=== PATIENT | female | born 1960 | race Caucasian/White ===

== ENCOUNTER → 2016-11-27 | Outpatient (REF) | payer BC ==
[~2016-11-27] MED LIST: HUMALOG INSULIN; HUMUINJ IJ; HUMUINJ SC; INSULANT SC; Mag-Ox; Mag-Ox PO; No Historical Meds; mycostatin powder TOP
[2016-11-27 12:11] LABS: ALBUMIN 3.1 GM/DL (3.2-5.2); ALBUMIN/GLOBULIN RATIO 0.78 (1.00-1.93); ALKALINE PHOSPHATASE 126 U/L (45-117); ALT/SGPT 24 U/L (12-78); ANION GAP 9 MEQ/L (8-16); AST/SGOT 7 U/L (15-37); BILIRUBIN,TOTAL 0.3 MG/DL (0.2-1.0); BLOOD UREA NITROGEN 15 MG/DL (7-18); CALCIUM LEVEL 8.2 MG/DL (8.5-10.1); CARBON DIOXIDE LEVEL 23 MEQ/L (21-32); CHLORIDE LEVEL 110 MEQ/L (98-107); CHOLESTEROL LEVEL 133 MG/DL (<200); GLOMERULAR FILTRATION RATE > 60.0 (>51); GLUCOSE, FASTING 266 MG/DL (70-105); POTASSIUM SERUM 3.8 MEQ/L (3.5-5.1); SODIUM LEVEL 142 MEQ/L (136-145); TOTAL PROTEIN 7.1 GM/DL (6.4-8.2); TRIGLYCERIDES LEVEL 101 MG/DL (<150)
[2016-11-27 12:20] LABS: MEAN CORPUSCULAR HEMOGLOBIN 29.1 pg (27.0-33.0); MEAN CORPUSCULAR HGB CONC 31.8 g/dl (32.0-36.5); MEAN CORPUSCULAR VOLUME 91.7 fl (80.0-96.0); RED CELL DISTRIBUTION WIDTH 13.6 % (11.5-14.5); WHITE BLOOD COUNT 8.6 K/mm3 (4.0-10.0)
== END ==
LOC: M LABDRAW1 11:36
PROVIDERS: ATTEND Family Medicine
DX: E11.9 Type 2 diabetes mellitus without complications (principal); E78.5 Hyperlipidemia, unspecified

== ENCOUNTER → 2017-03-22 | Outpatient (REF) | payer BC ==
[2017-03-22 10:46] LABS: MEAN CORPUSCULAR HEMOGLOBIN 30.1 pg (27.0-33.0); MEAN CORPUSCULAR HGB CONC 33.4 g/dl (32.0-36.5); RED CELL DISTRIBUTION WIDTH 14.2 % (11.5-14.5); WHITE BLOOD COUNT 8.4 K/mm3 (4.0-10.0)
[2017-03-22 11:28] LABS: ALBUMIN 3.2 GM/DL (3.2-5.2); ALBUMIN/GLOBULIN RATIO 0.76 (1.00-1.93); ALKALINE PHOSPHATASE 126 U/L (45-117); ALT/SGPT 28 U/L (12-78); ANION GAP 8 MEQ/L (8-16); AST/SGOT 8 U/L (15-37); BILIRUBIN,TOTAL 0.4 MG/DL (0.2-1.0); BLOOD UREA NITROGEN 18 MG/DL (7-18); CARBON DIOXIDE LEVEL 23 MEQ/L (21-32); CHLORIDE LEVEL 110 MEQ/L (98-107); CREATININE FOR GFR 0.84 MG/DL (0.55-1.02); GLOMERULAR FILTRATION RATE > 60.0 (>51); GLUCOSE, FASTING 217 MG/DL (70-105); SODIUM LEVEL 141 MEQ/L (136-145); TOTAL PROTEIN 7.4 GM/DL (6.4-8.2)
== END ==
LOC: M LABDRAW1 07:44
PROVIDERS: ATTEND Family Medicine
DX: E11.9 Type 2 diabetes mellitus without complications (principal)

== ENCOUNTER → 2017-06-23 | Outpatient (CLI) | payer BC | LOC: M LAB 08:18 | PROVIDERS: ATTEND Family Medicine | DX: E11.9 Type 2 diabetes mellitus without complications (principal) ==

== ENCOUNTER 2017-09-15 09:48 | Inpatient (IN) | payer BC ==
[~2017-09-15] VITALS: Ht 157.5 cm; Wt 84.9 kg
[2017-09-15] MEDS ORDERED: INSUH10VL SC (10:03)
[2017-09-15] MEDS ORDERED: TRAM50TA2 PO (10:03)
[2017-09-15] MEDS ORDERED: AUGM875T28 PO (10:03)
[2017-09-15] MEDS ORDERED: TOPA100T12 PO (10:03)
[2017-09-15] MEDS ORDERED: CLINDAMYCIN 900 MG in APPROPRIATE DILUENT 1 EA IV ONE (10:30)
[2017-09-15 10:52] LABS: BASO # 0.1 10^3/uL (0.0-0.2); BASO % 0.4 % (0.0-1.0); IMMATURE GRANULOCYTE % 0.5 % (0-0); LYMPH # 2.7 10^3/uL (1.5-4.5); LYMPH % 15.5 % (24.0-44.0); MEAN CORPUSCULAR HEMOGLOBIN 28.7 pg (27.0-33.0); MEAN CORPUSCULAR HGB CONC 32.7 g/dl (32.0-36.5); MEAN CORPUSCULAR VOLUME 87.7 fl (80.0-96.0); MONO # 1.1 10^3/uL (0.0-0.8); MONO % 6.3 % (0.0-5.0); NEUTROPHILS # 13.3 10^3/uL (1.8-7.7); NEUTROPHILS % 77.3 % (36.0-66.0); PLATELET COUNT, AUTOMATED 363 10^3/uL (150-450); RED CELL DISTRIBUTION WIDTH 13.7 % (11.5-14.5); WHITE BLOOD COUNT 17.2 10^3/uL (4.0-10.0)
[2017-09-15 11:14] LABS: CALCIUM LEVEL 9.4 MG/DL (8.5-10.1); CREATININE FOR GFR 1.09 MG/DL (0.55-1.02); GLOMERULAR FILTRATION RATE 55.1 (>51); POTASSIUM SERUM 3.9 MEQ/L (3.5-5.1)
[2017-09-15] MEDS ORDERED: ISOVUE-370 76% 100ML VIAL (Q9967) As Ordered ONE (11:15)
[2017-09-15] MEDS ORDERED: NS 1,000 ML IV ONE (11:30)
--- NOTE | 2017-09-15 11:45 | REP ---
Clinical: Facial swelling. Technique: Axial contrast enhanced images from the skull base to the thoracic inlet with coronal and sagittal re-formations using 100 ml Isovue 370 intravenous contrast material. Findings: Left facial and perimandibular soft tissue swelling and inflammatory infiltration to the subcutaneous tissues is appreciated with early phlegmonous changes superficial to the mandible. No drainable fluid collection/abscess identified. Associated left-sided adenopathy is appreciated along with mild left tonsillar swelling. The parapharyngeal fat space and neurovascular bundle appears relatively normal and symmetric. The airway is patent and without compromise. The parotid, submandibular and sublingual glands are symmetric and normal. The osseous structures are normal. The sinuses are clear. Impression: Infectious/inflammatory process along the left side of the face and mandible with early phlegmonous changes. No drainable collection or abscess. Signed by Narciso Bateman MD 09/15/2017 11:36 A
[2017-09-15] MEDS ORDERED: DEXTROSE 50% 50 ML SYRINGE IV PRN (13:00)
[2017-09-15] MEDS ORDERED: GLUCOSE 4 GM CHEW TABLET PO PRN (13:00)
[2017-09-15] MEDS ORDERED: CLINDAMYCIN 300 MG in APPROPRIATE DILUENT 1 EA IV SCH ×2 (13:00→17:00)
[2017-09-15] MEDS ORDERED: GLUCAGON FOR INJ 1 MG VIAL (J1610) SC PRN (13:00)
[2017-09-15] MEDS ORDERED: MORPHINE 2 MG/ML 1ML SYRINGE IV PRN (13:15)
[2017-09-15] MEDS ORDERED: ONDANSETRON 4MG/2ML VIAL (J2405) IV PRN (13:15)
[2017-09-15] MEDS ORDERED: BISACODYL 5 MG TAB PO PRN (13:15)
[2017-09-15] MEDS ORDERED: LR 1,000 ML IV SCH (13:15)
--- NOTE | 2017-09-15 13:34 | HPE ---
DATE OF ADMISSION: 09/15/2017 PRIMARY CARE PROVIDER: Dr. Isbell in [place]. SECURITY FLEX OFFICER: Dr. Jaime Peralta. CHIEF COMPLAINT: Left sided neck swelling, mild dysphagia. HISTORY OF PRESENT ILLNESS: This is a 57-year-old female patient with underlying medical history of diabetes, insulin dependent, type 2 diabetes, and no other medical history. Recently treated for sinusitis with Augmentin since Saturday. Awoke this morning with severe left sided neck swelling and mild difficulty swallowing. Denies any shortness of breath. Denies any cough or reported chills. No documented fever. Denies any chest pain, pressure or discomfort. Able to tolerate liquids and solids at this time. Reporting nasal congestion, which has improved since Saturday. Denies sick contacts, injuries, dental pain. Denies any chest pain, pressure or discomfort. ALLERGIES: No known drug allergies. PAST MEDICAL HISTORY: Insulin dependent type 2 diabetes. PAST SURGICAL HISTORY: None. SOCIAL HISTORY: Patient works as a registered nurse at [employer]. No smoking. Occasional drinking of alcohol, holidays only. No illicit drug use. FAMILY HISTORY: Father with colon cancer, prostate cancer and lung cancer. Mother and sister with diabetes. REVIEW OF SYSTEMS: Reported left sided neck pain and swelling, and left submandibular pain, chills, no fever documents. All other review of systems were negative. HOME MEDICATIONS: - Augmentin 875 mg by mouth daily - NovoLog insulin before meals subcu - Lantus 35 units subcu twice a day - Topamax 100 mg by mouth three times a day - tramadol 50 mg by mouth daily as needed PHYSICAL EXAMINATION: VITAL SIGNS: Temperature 97.1, pulse 118, respirations 20, blood pressure 136/82, pulse oximetry 97% on room air. GENERAL: Patient alert and oriented times three in no acute distress. HEENT: Left sided neck erythema and swelling. No oral lesions noticed. Patient has dentures . Tympanic membranes bilaterally clear. NECK: Supple. Trachea midline. Left sided neck swelling noted with mild erythema, predominantly submandibular area. No lymphadenopathy. PULMONARY: Bilaterally clear to auscultation. CARDIAC: Regular. Mild tachycardia. S1 and S2. ABDOMEN: Soft, nontender. Positive bowel sounds. EXTREMITIES: No clubbing, cyanosis, or edema. NEUROLOGIC: No focal deficits. LABORATORIES: WBC 17.2, hemoglobin and hematocrit 14.9/45.6, platelets 363. Chemistries: Sodium 139, potassium 3.9, chloride 107, bicarb 23, BUN 9, creatinine 1.09, lactic acid 2.1. CT scan shows left side of the face and mandible with early phlegmon changes. No drainage fluid collection yet. ASSESSMENT/PLAN: This is a 57-year-old female patient with underlying medical history of insulin dependent type 2 diabetes, recently treated for sinusitis who presented with left mandibular cellulitis 1. left submandibular cellulitis with symptoms of mild difficulty swallowing. No respiratory difficulties. Failure of outpatient antibiotic treatment. Patient was already on Augmentin when this occurred. ENT Dr. Peralta has been consulted. Followup hemoglobin A1c, followup C-reactive protein, followup blood. Patient currently on vanco 3. Diabetes with diabetic ketoacidosis. Basal bolus insulin as well as consistent carbohydrate diet. Followup hemoglobin A1c, followup fingerstick. Adjust as needed. Followup electrolytes. 4. Gastrointestinal (GI) prophylaxis. Given the patient is on clindamycin, will place the patient on probiotics. 5. Deep vein thrombosis (DVT) prophylaxis. Lovenox subcu. DISPOSITION PLANNING: Pending ENT consultation, clinical improvement. MTDD
[2017-09-15] MEDS: PERCOCET 5MG/325MG TAB PO PRN (14:30)
[2017-09-15] MEDS: ENOXAPARIN 40 MG/0.4 ML SYRINGE (J1650) SC SCH (14:31)
[2017-09-15 15:30] VITALS: BP 112/77
[2017-09-15 17:00] VITALS: O2SAT 97
[2017-09-15] MEDS: TOPIRAMATE (TopAMAX) 100 MG TAB PO SCH ×2 (17:58→20:41)
[2017-09-15] MEDS: LACTOBACILLUS ACIDOPHILUS CAP (BACID) PO SCH (17:58)
[2017-09-15] MEDS: VANCOMYCIN HCL 1,000 MG, VIAL MATE ADAPTER 1 EACH in D5W 250 ML IV SCH (18:21)
[2017-09-15] MEDS: HumaLOG INSULIN (NovoLOG) PER UNIT SC SCH ×2 (18:21→20:28)
[2017-09-15 20:00] VITALS: BP 133/80
[2017-09-15] MEDS: LEVEMIR (INSULIN DETEMIR) 1 UNITS/0.01ML SC SCH (20:40)
[2017-09-15] MEDS: traMADol 50 MG TAB PO SCH (20:41)
[2017-09-16] VITALS: BP 134/68
[2017-09-16 00:51] VITALS: O2SAT 94
[2017-09-16] MEDS: PERCOCET 5MG/325MG TAB PO PRN ×3 (03:28→21:33)
[2017-09-16] MEDS: VANCOMYCIN HCL 1,000 MG, VIAL MATE ADAPTER 1 EACH in D5W 250 ML IV SCH ×2 (05:55→17:15)
[2017-09-16 06:58] LABS: MEAN CORPUSCULAR HEMOGLOBIN 28.8 pg (27.0-33.0); MEAN CORPUSCULAR HGB CONC 32.9 g/dl (32.0-36.5); MEAN CORPUSCULAR VOLUME 87.6 fl (80.0-96.0); PLATELET COUNT, AUTOMATED 275 10^3/uL (150-450); RED CELL DISTRIBUTION WIDTH 13.9 % (11.5-14.5); WHITE BLOOD COUNT 10.1 10^3/uL (4.0-10.0)
[2017-09-16 07:19] LABS: ANION GAP 8 MEQ/L (8-16); BLOOD UREA NITROGEN 11 MG/DL (7-18); CALCIUM LEVEL 8.4 MG/DL (8.5-10.1); CARBON DIOXIDE LEVEL 24 MEQ/L (21-32); CHLORIDE LEVEL 109 MEQ/L (98-107); CREATININE FOR GFR 0.84 MG/DL (0.55-1.02); GLOMERULAR FILTRATION RATE > 60.0 (>51); GLUCOSE, FASTING 230 MG/DL (70-105); MAGNESIUM LEVEL 1.9 MG/DL (1.8-2.4); POTASSIUM SERUM 3.6 MEQ/L (3.5-5.1); SODIUM LEVEL 141 MEQ/L (136-145)
[2017-09-16 08:00] VITALS: BP 115/66; O2SAT 96
--- NOTE | 2017-09-16 08:04 | CR ---
DATE OF CONSULTATION: The patient was seen in the hospital at the request of the hospitalist. The patient represents with a history of swelling beneath the mandible on the left side. This happened a week ago but became worse the day prior to admission. As well, she had a lesion on her skin which was inferior lateral to the lower lip on that left side. The patient is diabetic. The patient has had no previous surgery. The patient has no dental problems. She has no difficulty with swallowing or problems with her airway. Examination today shows she is alert and in no distress. She has got a lesion on her skin inferolateral to the lower lip on the left side, which measures 2-3 mm. Whitish in coloration, flat, surrounded by an area of erythema. There is edema and induration of the soft tissues from that area down over the mandible on that left side to the submandibular area anteriorly on that left side. Examination of the mouth shows no abnormalities but when I palpate, there is some fullness between the gingival alveolar sulcus on the left side. There is tenderness in that area. The rest of the examination is normal. IMPRESSION: The patient has an area of cellulitis and a skin lesion which is suspicious for methicillin resistant Staphylococcus aureus (MRSA). PLAN: I would suggest that her antibiotic be changed to vancomycin to cover MRSA. At the present time, she is not a surgical candidate.
[2017-09-16] MEDS: TOPIRAMATE (TopAMAX) 100 MG TAB PO SCH ×3 (08:25→21:19)
[2017-09-16] MEDS: LACTOBACILLUS ACIDOPHILUS CAP (BACID) PO SCH ×2 (08:25→17:15)
[2017-09-16] MEDS: traMADol 50 MG TAB PO SCH ×2 (08:27→21:19)
[2017-09-16] MEDS: HumaLOG INSULIN (NovoLOG) PER UNIT SC SCH ×4 (08:28→21:18)
[2017-09-16] MEDS: LEVEMIR (INSULIN DETEMIR) 1 UNITS/0.01ML SC SCH ×2 (08:28→21:17)
[2017-09-16] MEDS: ENOXAPARIN 40 MG/0.4 ML SYRINGE (J1650) SC SCH (08:29)
[2017-09-16 16:00] VITALS: BP 129/67
--- NOTE | 2017-09-16 18:42 | IPN ---
DATE: 09/16/2017 SUBJECTIVE: Patient and seen and examined in the room today. Today patient was upset regarding her treatment. She previously stated she was questioning why she needed to stay in the hospital for IV antibiotics and she was asking if there was any other alternative treatments that she could use at home. Patient continues to have left mandibular swelling with erythema. Patient is not if there is any improvements yet. OBJECTIVE: VITAL SIGNS: Temperature 97.8, pulse 100, respirations 16, blood pressure 115/66, pulse ox 96% on room air. GENERAL: No signs of acute distress. Alert and oriented times three. HEENT: There is the swelling and erythema located left mandibular region, very tender to palpation. There is a small skin opening right in the middle of the swelling. There is no obvious lesion inside the oral mucosa. No sinus tenderness or problems with palpations. CARDIOVASCULAR: Normal S1, S2, regular rate. LUNGS: Clear to auscultation bilaterally. ABDOMEN: Soft, nontender, nondistended, bowel sounds present. EXTREMITIES: No edema, no signs of cyanosis. LABORATORY DATA: WBC 10.1, hemoglobin 11.8, hematocrit 35.9, platelet count 278, sodium 141, potassium 3.6, chloride 109, carbon dioxide 24, BUN 11, creatinine 0.8, GFR greater than 60, fasting glucose 230, calcium 8.4, magnesium 1.9, c-reactive protein 5.98. Blood culture is negative after 24 hours. ASSESSMENT AND PLAN: 1. Left submandibular cellulitis. ENT Dr. Peralta has consulted. There is a suspicion for possible MRSA infection. Therefore the patient was placed on IV vancomycin. Patient does require pain medication to achieve better pain control. Patient currently on Bacid. 2. Diabetes. Patient is on Levemir 30 units subcu twice a day and covered with sliding scale. Patient is on consistent carbohydrate diet. 3. History of sinusitis. Patient was prescribed Augmentin previously and she only took it for 2-3 days and then her symptoms before worse and result in facial infections. Per the patient the sinusitis is improving. 4. Deep vein thrombosis (DVT) prophylaxis. Lovenox subcu.
[2017-09-16 20:00] VITALS: BP 137/80
[2017-09-17] VITALS: BP 134/73
[2017-09-17 05:36] LABS: MEAN CORPUSCULAR HEMOGLOBIN 28.8 pg (27.0-33.0); MEAN CORPUSCULAR HGB CONC 32.6 g/dl (32.0-36.5); MEAN CORPUSCULAR VOLUME 88.3 fl (80.0-96.0); PLATELET COUNT, AUTOMATED 278 10^3/uL (150-450); RED CELL DISTRIBUTION WIDTH 13.8 % (11.5-14.5); WHITE BLOOD COUNT 9.4 10^3/uL (4.0-10.0)
[2017-09-17 05:51] LABS: ANION GAP 8 MEQ/L (8-16); BLOOD UREA NITROGEN 14 MG/DL (7-18); CALCIUM LEVEL 8.8 MG/DL (8.5-10.1); CARBON DIOXIDE LEVEL 24 MEQ/L (21-32); CHLORIDE LEVEL 109 MEQ/L (98-107); CREATININE FOR GFR 0.72 MG/DL (0.55-1.02); GLOMERULAR FILTRATION RATE > 60.0 (>51); GLUCOSE, FASTING 196 MG/DL (70-105); POTASSIUM SERUM 3.9 MEQ/L (3.5-5.1); SODIUM LEVEL 141 MEQ/L (136-145)
--- NOTE | 2017-09-17 06:06 | PHACANCOPD ---
PHARMACY VANCOMYCIN DOSING Pt Demographics Demographics Patient Age:57 , Weight:84.900 , Gender: female Adjusted Body Weight Date: 09/17/17, Adjusted Body Weight: Kg Vancomycin Vancomycin Load Y/N: No Load Dose Date Time Vancomycin Load Dose: Date: Time: Vancomycin Dose Date: 09/17/17. Current Vancomycin Dose: Intermittent Dosing?: No Labs Micro Microbiology 09/15/17 Blood Culture - Preliminary, Resulted No growth after 24 hours . All specim... 09/15/17 Blood Culture - Preliminary, Resulted No growth after 24 hours . All specim... Creatinine Clearance Date:09/17/17. Creatinine Clearance: . Assessment and Plan Maintaining Current Dose?: Yes Reason for dose change: No Dose Change Pharmacist Note Pharmacist Note Date: 09/17/17. Pharmacist note:Vancomycin trough drawn @ 0519 this morning reported as 13.2-Patient SCR= 0.72. Will continue corrent Vancomycin regimen of 1 gram IV [id number] will continue to follow levels and labs SHAHNAZ [facility]ISON [facility] Sep 17, 2017 06:06
[2017-09-17] MEDS: VANCOMYCIN HCL 1,000 MG, VIAL MATE ADAPTER 1 EACH in D5W 250 ML IV SCH (06:15)
[2017-09-17 08:00] VITALS: BP 135/74
[2017-09-17] MEDS: LACTOBACILLUS ACIDOPHILUS CAP (BACID) PO SCH (08:04)
[2017-09-17] MEDS: HumaLOG INSULIN (NovoLOG) PER UNIT SC SCH ×2 (08:05→13:17)
[2017-09-17] MEDS: traMADol 50 MG TAB PO SCH (09:36)
[2017-09-17] MEDS: LEVEMIR (INSULIN DETEMIR) 1 UNITS/0.01ML SC SCH (09:37)
[2017-09-17] MEDS: TOPIRAMATE (TopAMAX) 100 MG TAB PO SCH (09:37)
[2017-09-17] MEDS: ENOXAPARIN 40 MG/0.4 ML SYRINGE (J1650) SC SCH (09:38)
--- NOTE | 2017-09-26 06:08 | DSES ---
DATE OF ADMISSION: 09/15/2017 DATE OF DISCHARGE: 09/17/2017 CONSULTANTS: Ears, nose and throat (ENT) specialist, Dr. Peralta. PROCEDURES: None. DISCHARGE DIAGNOSES: 1. Left submandibular cellulitis. 2. Diabetes. 3. History of sinusitis. HOSPITALIZATION COURSE: The patient is a 57-year-old female who presented to [facility] on 09/15/2017, for left-sided neck swelling and mild dysphagia. The patient has a history of failed outpatient antibiotic therapy, and the patient is admitted under hospitalist service, and ENT specialist, Dr. Peralta, was consulted. The patient was started on empiric antibiotics. Initially due to concern for methicillin-resistant Staphylococcus aureus (MRSA), the patient was started on IV vancomycin. The patient showed gradual improvement of her symptoms and antibiotics have been adjusted from IV to oral to ENT recommendation. On 09/17/2017, the patient is determined medically stable for discharge, and oral antibiotic prescription was given to the patient by Dr. Peralta. The patient is recommended to followup with primary care provider, Dr. Isbell, in 7-10 days. Vital signs on the day of discharge, temperature 99.8, pulse 94, respirations 20, blood pressure 135/74, pulse oximetry 96% on room air. LABORATORY DATA: On the day of discharge, WBC of 9.4 (WBC on admission 17.2), hemoglobin is 11.8, hematocrit 36.2, platelet count 278, Sodium is 141, potassium 3.9, chloride 109, carbon dioxide 24, BUN 14, creatinine 0.72, GFR greater than 60, fasting glucose 196, calcium 8.8, magnesium two. C-reactive protein 4.69. MICROBIOLOGY: Blood cultures from 09/15/2017, negative after five days times two sets. IMAGING: CT of the neck with contrast on 09/15/2017, showed infectious/inflammatory process along the left side of the face and mandible with early phlegmonous changes. No drainable collection or abscess. DISCHARGE MEDICATIONS: - antibiotic prescription (Bactrim) was given by Dr. Peralta. Recommend to finish course of antibiotics. - NovoLog subcutaneous before food - Lantus 35 units subcutaneous twice a day - Topamax 100 mg by mouth three times a day - tramadol 25 mg by mouth twice a day DISCHARGE INSTRUCTIONS: Discontinue lines, discharge home. Activity as tolerated. Diabetic diet as tolerated. The patient should finish her course of Bactrim per recommendations. The patient is recommended to followup with her primary care provider, Dr. Isbell, in 7-10 days. CONDITION ON DISCHARGE: Stable. DISCHARGE TIME: Greater than 30 minutes.
== END 2017-09-17 14:40 | disposition home or self-care (01) | DRG 114 ==
LOC: M ED 09:48 → M ED INP 13:02 → M PED 15:22
PROVIDERS: ADMIT Hospitalist; ATTEND Internal Medicine
DX: K12.2 Cellulitis and abscess of mouth (principal); E11.10 Type 2 diabetes mellitus with ketoacidosis without coma; R13.10 Dysphagia, unspecified; J32.9 Chronic sinusitis, unspecified; Z79.4 Long term (current) use of insulin

== ENCOUNTER → 2017-12-29 | Outpatient (CLI) | payer BC ==
[2017-12-29 08:34] LABS: BASO % 0.5 % (0.0-1.0); HEMOGLOBIN 13.6 g/dl (12.0-16.0); IMMATURE GRANULOCYTE % 0.2 % (0-3.0); LYMPH # 2.4 10^3/uL (1.5-4.5); LYMPH % 28.4 % (24.0-44.0); MEAN CORPUSCULAR HEMOGLOBIN 28.9 pg (27.0-33.0); MEAN CORPUSCULAR HGB CONC 32.4 g/dl (32.0-36.5); MEAN CORPUSCULAR VOLUME 89.2 fl (80.0-96.0); MONO # 0.6 10^3/uL (0.0-0.8); NEUTROPHILS # 5.5 10^3/uL (1.8-7.7); NEUTROPHILS % 63.9 % (36.0-66.0); PLATELET COUNT, AUTOMATED 289 10^3/uL (150-450); RED BLOOD COUNT 4.71 10^6/uL (4.00-5.40); RED CELL DISTRIBUTION WIDTH 13.9 % (11.5-14.5); WHITE BLOOD COUNT 8.5 10^3/uL (4.0-10.0)
[2017-12-29 08:40] LABS: APPEARANCE, URINE HAZY (CLEAR); BACTERIA, URINE AUTO 1+ (NEGATIVE); BILIRUBIN, URINE AUTO NEGATIVE (NEGATIVE); BLOOD, URINE BLOOD 1+ (NEGATIVE); COLOR, URINE YELLOW (YELLOW); GLUCOSE, URINE (UA) AUTO NEGATIVE (NEGATIVE); KETONE, URINE AUTO NEGATIVE (NEGATIVE); LEUKOCYTE ESTERASE, URINE AUTO NEGATIVE (NEGATIVE); MUCUS, URINE SMALL (NEGATIVE); NITRITE, URINE AUTO NEGATIVE (NEGATIVE); PROTEIN, URINE AUTO NEGATIVE (NEGATIVE); RBC, URINE AUTO 2 /HPF (0-3); SPECIFIC GRAVITY URINE AUTO 1.016 (1.002-1.035); SQUAMOUS EPITHELIAL CELL UR AU 3 /HPF (0-6); UROBILINOGEN, URINE AUTO 0.2 mg/dL (0.0-2.0); WBC, URINE AUTO 1 /HPF (0-3)
[2017-12-29 08:59] LABS: ESTIMATED AVERAGE GLUCOSE 192 MG/DL (60-110); HEMOGLOBIN A1c 8.3 %
[2017-12-29 09:07] LABS: ALBUMIN 3.2 GM/DL (3.2-5.2); ALBUMIN/GLOBULIN RATIO 0.84 (1.00-1.93); ALKALINE PHOSPHATASE 115 U/L (45-117); ALT/SGPT 14 U/L (12-78); ANION GAP 6 MEQ/L (8-16); AST/SGOT 6 U/L (7-37); BILIRUBIN,TOTAL 0.3 MG/DL (0.2-1.0); BLOOD UREA NITROGEN 13 MG/DL (7-18); CALCIUM LEVEL 8.1 MG/DL (8.5-10.1); CARBON DIOXIDE LEVEL 26 MEQ/L (21-32); CHLORIDE LEVEL 113 MEQ/L (98-107); CHOLESTEROL LEVEL 204 MG/DL (<200); CHOLESTEROL RISK RATIO 6.181 (<5); CREATININE FOR GFR 0.69 MG/DL (0.55-1.30); FREE T4 1.05 NG/DL (0.76-1.46); GLOMERULAR FILTRATION RATE > 60.0 (>51); GLUCOSE, FASTING 72 MG/DL (70-100); HDL CHOLESTEROL 33 MG/DL (>40); LDL CHOLESTEROL 137.4 MG/DL (<100); NON-HDL-C 171 MG/DL; POTASSIUM SERUM 3.6 MEQ/L (3.5-5.1); SODIUM LEVEL 145 MEQ/L (136-145); TRIGLYCERIDES LEVEL 168 MG/DL (<150)
[2017-12-29 09:09] LABS: MALB URINE SIEMENS 11.8 MG/L; MAU/CREAT RATIO 7.8 MCG/MG (0.0-30.0)
== END ==
LOC: M LAB 08:03
DX: Z51.81 Encounter for therapeutic drug level monitoring (principal); Z79.4 Long term (current) use of insulin; E11.9 Type 2 diabetes mellitus without complications; E78.5 Hyperlipidemia, unspecified
CPT/HCPCS: 84443

== ENCOUNTER → 2018-07-06 | Outpatient (CLI) | payer OTHER ==
[2018-07-06 09:16] LABS: BASO % 0.5 % (0.0-1.0); EOS % 0.1 % (0.0-3.0); HEMATOCRIT 40.5 % (36.0-47.0); HEMOGLOBIN 13.1 g/dl (12.0-15.5); IMMATURE GRANULOCYTE % 0.4 % (0-3.0); LYMPH % 24.7 % (24.0-44.0); MEAN CORPUSCULAR HEMOGLOBIN 28.8 pg (27.0-33.0); MEAN CORPUSCULAR HGB CONC 32.3 g/dl (32.0-36.5); MONO # 0.5 10^3/uL (0.0-0.8); MONO % 6.5 % (0.0-5.0); NEUTROPHILS # 5.4 10^3/uL (1.8-7.7); NEUTROPHILS % 67.8 % (36.0-66.0); PLATELET COUNT, AUTOMATED 287 10^3/uL (150-450); RED BLOOD COUNT 4.55 10^6/uL (4.00-5.40); RED CELL DISTRIBUTION WIDTH 14.1 % (11.5-14.5)
[2018-07-06 09:36] LABS: APPEARANCE, URINE CLEAR (CLEAR); BACTERIA, URINE AUTO 1+ (NEGATIVE); BILIRUBIN, URINE AUTO NEGATIVE (NEGATIVE); BLOOD, URINE BLOOD 1+ (NEGATIVE); COLOR, URINE YELLOW (YELLOW); GLUCOSE, URINE (UA) AUTO NEGATIVE (NEGATIVE); KETONE, URINE AUTO NEGATIVE (NEGATIVE); LEUKOCYTE ESTERASE, URINE AUTO NEGATIVE (NEGATIVE); MUCUS, URINE SMALL (NEGATIVE); NITRITE, URINE AUTO NEGATIVE (NEGATIVE); PROTEIN, URINE AUTO NEGATIVE (NEGATIVE); RBC, URINE AUTO 3 /HPF (0-3); SPECIFIC GRAVITY URINE AUTO 1.019 (1.002-1.035); SQUAMOUS EPITHELIAL CELL UR AU 1 /HPF (0-6); UROBILINOGEN, URINE AUTO 0.2 mg/dL (0.0-2.0); WBC, URINE AUTO 2 /HPF (0-3)
[2018-07-06 09:47] LABS: ALBUMIN 3.1 GM/DL (3.2-5.2); ALBUMIN/GLOBULIN RATIO 0.72 (1.00-1.93); ALKALINE PHOSPHATASE 121 U/L (45-117); ALT/SGPT 16 U/L (12-78); ANION GAP 9 MEQ/L (8-16); AST/SGOT 9 U/L (7-37); BILIRUBIN,TOTAL 0.3 MG/DL (0.2-1.0); BLOOD UREA NITROGEN 15 MG/DL (7-18); CALCIUM LEVEL 8.5 MG/DL (8.5-10.1); CARBON DIOXIDE LEVEL 23 MEQ/L (21-32); CHLORIDE LEVEL 110 MEQ/L (98-107); CHOLESTEROL LEVEL 190 MG/DL (<200); CHOLESTEROL RISK RATIO 5.135 (<5); CPK CREATINE PHOSPHOKINASE 36 U/L (26-192); FREE T4 1.06 NG/DL (0.76-1.46); GLOMERULAR FILTRATION RATE > 60.0 (>51); GLUCOSE, FASTING 80 MG/DL (70-100); HDL CHOLESTEROL 37 MG/DL (>40); LDL CHOLESTEROL 128 MG/DL (<100); NON-HDL-C 153 MG/DL; SODIUM LEVEL 142 MEQ/L (136-145); TOTAL PROTEIN 7.4 GM/DL (6.4-8.2); TRIGLYCERIDES LEVEL 124 MG/DL (<150)
[2018-07-06 10:35] LABS: ESTIMATED AVERAGE GLUCOSE 160 MG/DL (60-110); HEMOGLOBIN A1c 7.2 %
== END ==
LOC: M LAB 08:18
DX: E78.5 Hyperlipidemia, unspecified (principal); E11.9 Type 2 diabetes mellitus without complications
CPT/HCPCS: 82550

== ENCOUNTER → 2019-07-28 | Outpatient (REF) | payer OTHER ==
[~2019-07-28] MED LIST changes: +AUGM875T28 PO; +CLEO300C2 PO; +INSUH10VL SC; +TOPA100T12 PO; +TRAM50TA2 PO
[2019-07-28 12:19] LABS: AMORPHOUS SEDIMENT SMALL (NEGATIVE); APPEARANCE, URINE HAZY (CLEAR); BACTERIA, URINE AUTO 1+ (NEGATIVE); BILIRUBIN, URINE AUTO NEGATIVE (NEGATIVE); BLOOD, URINE BLOOD NEGATIVE (NEGATIVE); COLOR, URINE YELLOW (YELLOW); GLUCOSE, URINE (UA) AUTO NEGATIVE (NEGATIVE); KETONE, URINE AUTO NEGATIVE (NEGATIVE); LEUKOCYTE ESTERASE, URINE AUTO NEGATIVE (NEGATIVE); MUCUS, URINE SMALL (NEGATIVE); NITRITE, URINE AUTO NEGATIVE (NEGATIVE); PROTEIN, URINE AUTO NEGATIVE (NEGATIVE); RBC, URINE AUTO 0 /HPF (0-3); SPECIFIC GRAVITY URINE AUTO 1.019 (1.002-1.035); SQUAMOUS EPITHELIAL CELL UR AU 3 /HPF (0-6); UROBILINOGEN, URINE AUTO 0.2 mg/dL (0.0-2.0); WBC, URINE AUTO 2 /HPF (0-3)
[2019-07-28 12:20] LABS: BASO # 0.1 10^3/uL (0.0-0.2); BASO % 0.6 % (0.0-1.0); HEMATOCRIT 43.8 % (36.0-47.0); LYMPH # 2.1 10^3/uL (1.5-5.0); LYMPH % 25.3 % (24.0-44.0); MEAN CORPUSCULAR VOLUME 93.8 fl (80.0-96.0); MONO # 0.6 10^3/uL (0.0-0.8); MONO % 6.6 % (0.0-5.0); NEUTROPHILS # 5.6 10^3/uL (1.5-8.5); NEUTROPHILS % 67.3 % (36.0-66.0); PLATELET COUNT, AUTOMATED 302 10^3/uL (150-450); RED BLOOD COUNT 4.67 10^6/uL (4.00-5.40); WHITE BLOOD COUNT 8.4 10^3/uL (4.0-10.0)
[2019-07-28 12:46] LABS: ALBUMIN 3.2 GM/DL (3.2-5.2); ALT/SGPT 20 U/L (12-78); BILIRUBIN,TOTAL 0.4 MG/DL (0.2-1.0); BLOOD UREA NITROGEN 15 MG/DL (7-18); CALCIUM LEVEL 8.3 MG/DL (8.5-10.1); CARBON DIOXIDE LEVEL 25 MEQ/L (21-32); CHLORIDE LEVEL 109 MEQ/L (98-107); CHOLESTEROL LEVEL 187 MG/DL (<200); CHOLESTEROL RISK RATIO 5.054 (<5); CPK CREATINE PHOSPHOKINASE 41 U/L (26-192); FREE T4 1.15 NG/DL (0.76-1.46); GLOMERULAR FILTRATION RATE > 60.0 (>51); GLUCOSE, FASTING 59 MG/DL (70-100); HDL CHOLESTEROL 37 MG/DL (>40); LDL CHOLESTEROL 127 MG/DL (<100); NON-HDL-C 150 MG/DL; POTASSIUM SERUM 3.8 MEQ/L (3.5-5.1); SODIUM LEVEL 144 MEQ/L (136-145); TOTAL PROTEIN 7.4 GM/DL (6.4-8.2); TRIGLYCERIDES LEVEL 116 MG/DL (<150)
[2019-07-28 14:11] LABS: HEMOGLOBIN A1c 7.2 %
== END ==
LOC: M LABDRAW1 11:27
PROVIDERS: ATTEND Family Medicine
DX: E11.9 Type 2 diabetes mellitus without complications (principal); E78.5 Hyperlipidemia, unspecified

== ENCOUNTER → 2020-03-23 | Outpatient (CLI) | payer OTHER ==
[2020-03-23 08:39] LABS: BASO # 0.1 10^3/uL (0.0-0.2); BASO % 0.7 % (0.0-1.0); HEMATOCRIT 44.3 % (36.0-47.0); LYMPH # 2.2 10^3/uL (1.5-5.0); LYMPH % 29.1 % (24.0-44.0); MEAN CORPUSCULAR HEMOGLOBIN 29.2 pg (27.0-33.0); MEAN CORPUSCULAR HGB CONC 31.6 g/dl (32.0-36.5); MEAN CORPUSCULAR VOLUME 92.5 fl (80.0-96.0); MONO # 0.5 10^3/uL (0.0-0.8); NEUTROPHILS # 4.7 10^3/uL (1.5-8.5); NEUTROPHILS % 62.9 % (36.0-66.0); PLATELET COUNT, AUTOMATED 314 10^3/uL (150-450); RED BLOOD COUNT 4.79 10^6/uL (4.00-5.40); WHITE BLOOD COUNT 7.4 10^3/uL (4.0-10.0)
[2020-03-23 08:46] LABS: APPEARANCE, URINE CLOUDY (CLEAR); BACTERIA, URINE AUTO 1+ (NEGATIVE); BILIRUBIN, URINE AUTO NEGATIVE (NEGATIVE); BLOOD, URINE BLOOD NEGATIVE (NEGATIVE); COLOR, URINE YELLOW (YELLOW); GLUCOSE, URINE (UA) AUTO NEGATIVE (NEGATIVE); KETONE, URINE AUTO NEGATIVE (NEGATIVE); LEUKOCYTE ESTERASE, URINE AUTO 2+ (NEGATIVE); MUCUS, URINE SMALL (NEGATIVE); NITRITE, URINE AUTO NEGATIVE (NEGATIVE); PROTEIN, URINE AUTO NEGATIVE (NEGATIVE); RBC, URINE AUTO 1 /HPF (0-3); SQUAMOUS EPITHELIAL CELL UR AU 14 /HPF (0-6); UROBILINOGEN, URINE AUTO 0.2 mg/dL (0.0-2.0); WBC, URINE AUTO 9 /HPF (0-3)
[2020-03-23 09:20] LABS: ALBUMIN 3.2 GM/DL (3.2-5.2); ALT/SGPT 26 U/L (12-78); BILIRUBIN,TOTAL 0.3 MG/DL (0.2-1.0); BLOOD UREA NITROGEN 11 MG/DL (7-18); CALCIUM LEVEL 8.7 MG/DL (8.5-10.1); CARBON DIOXIDE LEVEL 26 MEQ/L (21-32); CHLORIDE LEVEL 112 MEQ/L (98-107); CHOLESTEROL LEVEL 189 MG/DL (<200); CHOLESTEROL RISK RATIO 5.108 (<5); CPK CREATINE PHOSPHOKINASE 48 U/L (26-192); GLOMERULAR FILTRATION RATE > 60.0 (>51); GLUCOSE, FASTING 39 MG/DL (70-100); HDL CHOLESTEROL 37 MG/DL (>40); LDL CHOLESTEROL 130 MG/DL (<100); NON-HDL-C 152 MG/DL; POTASSIUM SERUM 3.9 MEQ/L (3.5-5.1); SODIUM LEVEL 144 MEQ/L (136-145); TOTAL PROTEIN 7.5 GM/DL (6.4-8.2); TRIGLYCERIDES LEVEL 110 MG/DL (<150)
== END ==
LOC: M LAB 07:32
PROVIDERS: ATTEND Family Medicine
DX: E78.5 Hyperlipidemia, unspecified (principal); E11.9 Type 2 diabetes mellitus without complications

== ENCOUNTER 2022-05-25 10:51 | Emergency (ER) | payer OTHER ==
[~2022-05-25] VITALS: Ht 157.5 cm; Wt 81.0 kg
[2022-05-25 10:51] VITALS: BP 132/68
[2022-05-25 14:17] LABS: BASO # 0.1 10^3/uL (0.0-0.2); BASO % 0.7 % (0.0-1.0); EOS # 0.2 10^3/uL (0.0-0.5); EOS % 1.3 % (0.0-3.0); HEMATOCRIT 40.8 % (36.0-47.0); LYMPH # 2.5 10^3/uL (1.5-5.0); LYMPH % 21.5 % (24.0-44.0); MEAN CORPUSCULAR HEMOGLOBIN 29.8 pg (27.0-33.0); MEAN CORPUSCULAR HGB CONC 31.9 g/dl (32.0-36.5); MEAN CORPUSCULAR VOLUME 93.6 fl (80.0-96.0); MONO # 0.7 10^3/uL (0.0-0.8); NEUTROPHILS % 70.1 % (36.0-66.0); PLATELET COUNT, AUTOMATED 403 10^3/uL (150-450); RED BLOOD COUNT 4.36 10^6/uL (4.00-5.40); WHITE BLOOD COUNT 11.4 10^3/uL (4.0-10.0)
[2022-05-25 15:00] LABS: ALT/SGPT 14 U/L (12-78); BILIRUBIN,TOTAL 0.2 MG/DL (0.2-1.0); BLOOD UREA NITROGEN 12 MG/DL (7-18); CALCIUM LEVEL 9.1 MG/DL (8.8-10.2); CARBON DIOXIDE LEVEL 25 MEQ/L (21-32); CHLORIDE LEVEL 110 MEQ/L (98-107); CREATININE FOR GFR 0.69 MG/DL (0.55-1.30); GLOMERULAR FILTRATION RATE > 60.0 (>45); GLUCOSE, FASTING 105 MG/DL (70-100); POTASSIUM SERUM 3.7 MEQ/L (3.5-5.1); SODIUM LEVEL 142 MEQ/L (136-145); TOTAL PROTEIN 7.8 GM/DL (6.4-8.2)
[2022-05-25 15:11] LABS: HEPATITIS B SURFACE ANTIBODY POSITIVE (POSITIVE)
[2022-05-25 15:21] LABS: HEPATITIS B SURFACE ANTIGEN NEGATIVE (NEGATIVE)
[2022-05-25 15:50] LABS: HEPATITIS C VIRUS ABY INDEX < 0.0 INDEX (<0.8); HIV 1&2 SCREEN CENTAUR NEGATIVE (NEGATIVE)
== END 2022-05-25 14:35 | disposition home or self-care (01) ==
LOC: M ED 10:51
DX: S61.032A Puncture wound without foreign body of left thumb without damage to nail, initial encounter (principal); Z77.21 Contact with and (suspected) exposure to potentially hazardous body fluids; W46.1XXA Contact with contaminated hypodermic needle, initial encounter; Y99.0 Civilian activity done for income or pay

== ENCOUNTER 2022-06-04 10:54 | Emergency (ER) | payer BC, OTHER ==
[~2022-06-04] VITALS: Ht 157.5 cm; Wt 80.8 kg
[2022-06-04] MEDS ORDERED: NOVOINJ13 SC (11:06)
[2022-06-04] MEDS ORDERED: NOVOINJ12 SC (11:06)
[2022-06-04] MEDS ORDERED: FLUT15.820 NARES (13:05)
[2022-06-04] MEDS ORDERED: AMOX875T2 PO (13:05)
[2022-06-04 13:17] VITALS: BP 127/79
== END 2022-06-04 13:20 | disposition home or self-care (01) ==
LOC: M ED 10:54
DX: J01.90 Acute sinusitis, unspecified (principal)

== ENCOUNTER → 2023-03-02 | Outpatient (CLI) | payer BC ==
[~2023-03-02] MED LIST changes: +AMOX875T2 PO; +FLUT15.820 NARES; +NOVOINJ12 SC; +NOVOINJ13 SC
[2023-03-02 08:36] LABS: BASO # 0.1 10^3/uL (0.0-0.2); BASO % 0.7 % (0.0-1.0); EOS # 0.2 10^3/uL (0.0-0.5); EOS % 2.8 % (0.0-3.0); HEMATOCRIT 43.2 % (36.0-47.0); LYMPH # 2.5 10^3/uL (1.5-5.0); LYMPH % 36.1 % (24.0-44.0); MEAN CORPUSCULAR HEMOGLOBIN 30.1 pg (27.0-33.0); MEAN CORPUSCULAR HGB CONC 32.4 g/dl (32.0-36.5); MEAN CORPUSCULAR VOLUME 92.9 fl (80.0-96.0); MONO # 0.4 10^3/uL (0.0-0.8); MONO % 5.4 % (2.0-8.0); NEUTROPHILS # 3.9 10^3/uL (1.5-8.5); NEUTROPHILS % 54.9 % (36.0-66.0); PLATELET COUNT, AUTOMATED 282 10^3/uL (150-450); RED BLOOD COUNT 4.65 10^6/uL (4.00-5.40)
[2023-03-02 08:45] LABS: ERYTHROCYTE SEDIMENTATION RATE 53 mm/hr (0-30)
[2023-03-02 08:53] LABS: HEMOGLOBIN A1c 9.2 % (4.0-6.0)
[2023-03-02 08:55] LABS: ALBUMIN 3.2 G/DL (3.2-5.2); ALKALINE PHOSPHATASE 123 U/L (46-116); ALT/SGPT 20 U/L (7.0-40); AST/SGOT 16 U/L (<34); BILIRUBIN,TOTAL 0.5 MG/DL (0.3-1.2); BLOOD UREA NITROGEN 15 MG/DL (9-23); CALCIUM LEVEL 8.6 MG/DL (8.3-10.6); CARBON DIOXIDE LEVEL 31 MMOL/L (20-31); CHLORIDE LEVEL 105 MMOL/L (98-107); CHOLESTEROL LEVEL 165 MG/DL (<200); CHOLESTEROL RISK RATIO 3.85 (<5); CREATININE FOR GFR 0.71 MG/DL (0.55-1.30); GLOMERULAR FILTRATION RATE > 60.0 (>45); GLUCOSE, FASTING 78 MG/DL (74-106); HDL CHOLESTEROL 42.8 MG/DL (>40); LDL CHOLESTEROL 104.2 MG/DL (<100); NON-HDL-C 122.2 MG/DL; POTASSIUM SERUM 3.7 MMOL/L (3.5-5.1); SODIUM LEVEL 143 MMOL/L (136-145); TOTAL PROTEIN 6.9 G/DL (5.7-8.2); TRIGLYCERIDES LEVEL 90 MG/DL (<150)
[2023-03-02 08:59] LABS: THYROID STIMULATING HORMONE 1.731 uIU/ML (0.55-4.78)
== END ==
LOC: M LAB 08:08
PROVIDERS: ATTEND Registered Nurse
DX: E11.9 Type 2 diabetes mellitus without complications (principal)